=== PATIENT | female | born 1955 | race Caucasian/White ===

== ENCOUNTER → 2018-12-12 | Outpatient (CLI) | payer OTHER ==
[~2018-12-12] MED LIST: ATOR40TA78 PO; CLOP75TA PO; LOSA100T14 PO; METO25TA35 PO; VALA500T4 PO
[2018-12-12 10:30] LABS: BASOPHILS # (AUTO) 0.04 x10^3/uL (0-0.1); BASOPHILS % (AUTO) 1 % (0-1); EOSINOPHILS # (AUTO) 0.04 x10^3/uL (0-0.4); EOSINOPHILS % (AUTO) 1 % (1-7); LYMPHOCYTES # (AUTO) 1.71 x10^3/uL (1-3.4); LYMPHOCYTES % (AUTO) 41 % (22-44); MD NO; MEAN CORPUSCULAR HEMOGLOBIN 30.9 pg (27.0-34.8); MEAN CORPUSCULAR HGB CONC 33.2 g/dL (32.4-35.8); MEAN CORPUSCULAR VOLUME 93.2 fL (80-100); MEAN PLATELET VOLUME 7.2 fL (7.4-10.4); MONOCYTES # (AUTO) 0.42 x10^3/uL (0.2-0.8); MONOCYTES % (AUTO) 10 % (2-9); NEUTROPHILS # (AUTO) 1.94 x10^3/uL (1.8-6.8); NEUTROPHILS % (AUTO) 47 % (42-75); PLATELET COUNT 257 x10^3/uL (130-400); RED BLOOD COUNT 4.29 x10^6/uL (3.82-5.3); RED CELL DISTRIBUTION WIDTH 13.1 % (9.6-15.2)
[2018-12-12 10:41] LABS: ALANINE AMINOTRANSFERASE 12 U/L (12-78); ALBUMIN 4.3 g/dL (3.4-5.0); ANION GAP 4 mmol/L (5-15); CALCIUM 9.1 mg/dL (8.5-10.1); CHLORIDE 108 mmol/L (98-107); CREATININE 0.69 mg/dL (0.55-1.02)
[2018-12-12 10:44] LABS: ALKALINE PHOSPHATASE 87 U/L (45-117); BILIRUBIN,TOTAL 1.4 mg/dL (0.2-1.0); TOTAL PROTEIN 7.3 g/dL (6.4-8.2)
== END | disposition home or self-care (01) ==
LOC: STAR 09:25 → EDSTATUS 09:30
PROVIDERS: ATTEND Internal Medicine Gastroenterology
DX: Z01.818 Encounter for other preprocedural examination (principal); R19.7 Diarrhea, unspecified
CPT/HCPCS: 36415; 80053; 85025; 93005

== ENCOUNTER 2018-12-20 08:12 | Day surgery (SDC) | payer OTHER ==
[~2018-12-20] VITALS: Ht 162.6 cm; Wt 64.5 kg
[2018-12-20 09:02] VITALS: BP 142/91
== END 2018-12-20 12:20 | disposition home or self-care (01) ==
LOC: OUT 08:12
PROVIDERS: ATTEND Internal Medicine Gastroenterology
DX: K57.30 Diverticulosis of large intestine without perforation or abscess without bleeding (principal); I69.398 Other sequelae of cerebral infarction; E78.5 Hyperlipidemia, unspecified; Z79.02 Long term (current) use of antithrombotics/antiplatelets; Z79.899 Other long term (current) drug therapy
CPT/HCPCS: 45378; J2704; J7120